=== PATIENT | female | born 1995 | race African-American/Black ===

== ENCOUNTER 2021-08-17 11:44 | Emergency (ER) | payer SELFPAY ==
[2021-08-17 18:39] LABS: SARS-COV-2 RT PCR NEGATIVE (NEGATIVE)
--- NOTE | 2021-08-17 18:50 | ER ---
Nurse's Notes [facility] Name: Ana Yip Age: 25 yrs Sex: Female : 1995 Arrival Date: 08/17/2021 Time: 11:47 Bed Waiting Private MD: Diagnosis: Acute pharyngitis, unspecified Presentation: 08/17 12:38 Chief complaint: Patient states: cough, fever, sore throat x3 days. Coronavirus screen: Vaccine status: Patient reports being unvaccinated. Ebola Screen: Patient denies travel to an Ebola-affected area in the 21 days before illness onset. Initial Sepsis Screen: Does the patient meet any 2 criteria? No. Patient's initial sepsis screen is negative. Does the patient have a suspected source of infection? No. Patient's initial sepsis screen is negative. Risk Assessment: Do you want to hurt yourself or someone else? Patient reports no desire to harm self or others. Onset of symptoms was August 14, 2021. 12:38 Method Of Arrival: Ambulatory 12:38 Acuity: ADEEL 4 Triage Assessment: 12:43 General: Appears in no apparent distress. Behavior is calm, cooperative. hogue Historical: - Allergies: 12:43 No Known Allergies; hogue - Home Meds: 12:43 None [Active]; hogue - PMHx: 12:43 None; hogue - PSHx: 12:43 None; hogue - Immunization history:: Adult Immunizations up to date. - Social history:: Smoking status: Patient reports the use of cigarette tobacco products, smokes one pack cigarettes per day. Assessment: 18:58 Reassessment: pt discharged by ERP. marino Vital Signs: 12:38 BP 132 / 88; Pulse 88; Resp 18; Temp 98.0; Pulse Ox 100% ; Weight 80.74 kg; Height 5 hogue ft. 2 in. (157.48 cm); 12:38 Body Mass Index 32.56 (80.74 kg, 157.48 cm) hogue ED Course: 11:47 Patient arrived in ED. am2 12:43 Triage completed. hogue 12:43 Arm band placed on right wrist. ohgue 13:42 Strep Sent. hogue 13:42 Group A Streptococcus Rapid Sc Sent. hogue 16:39 Gurpreet Rea NP is PHCP. pm1 16:39 Alphonso Hernandez MD is Attending Physician. pm1 18:57 No provider procedures requiring assistance completed. Patient did not have IV access jl7 during this emergency room visit. Administered Medications: No medications were administered Outcome: 18:49 Discharge ordered by . pm1 18:57 Discharged to home ambulatory. jl7 18:57 Condition: stable 18:57 Discharge instructions given to patient, Instructed on discharge instructions, follow up and referral plans. Demonstrated understanding of instructions, follow-up care. 18:58 Patient left the ED. jl7 Signatures: Gurpreet Rea NP DRAFTER ASSISTANT pm1 Katy Chapa RN RN jl7 Casie Sarakr am2 Lisa Ruvalcaba RN RN hogue
--- NOTE | 2021-08-17 18:50 | EDPHYS ---
Physician Documentation [facility] Name: Ana Yip Age: 25 yrs Sex: Female : 1995 Arrival Date: 08/17/2021 Time: 11:47 Bed Waiting Private MD: KAUSHIK Physician Alphonso Hernandez HPI: 08/17 16:42 This 25 yrs old Black Female presents to ER via Ambulatory with complaints of Sore pm1 Throat, Difficulty Swallowing, Fever. 16:42 The patient presents with sore throat. The patient describes throat pain as raw, pm1 scratchy. Onset: The symptoms/episode began/occurred 1 day(s) ago. Severity of symptoms: in the emergency department the symptoms are actually worse. Modifying factors: The symptoms are alleviated by nothing, the symptoms are aggravated by swallowing, Patient's oral intake status: good The patient has had contact with sick co-worker(s), covid, at work. Associated signs and symptoms: Pertinent positives: fever, Pertinent negatives chest pain, cough, diarrhea, shortness of breath, vomiting. The patient has not experienced similar symptoms in the past. The patient has not recently seen a physician. Patient with onset of sore throat yesterday. Patient was exposed to Covid coworkers and is looking for a return to work post lab results. Historical: - Allergies: 12:43 No Known Allergies; hogue - Home Meds: 12:43 None [Active]; hogue - PMHx: 12:43 None; hogue - PSHx: 12:43 None; hogue - Immunization history:: Adult Immunizations up to date. - Social history:: Smoking status: Patient reports the use of cigarette tobacco products, smokes one pack cigarettes per day. ROS: 16:42 Eyes: Negative for injury, pain, redness, and discharge. pm1 16:42 Neck: Negative for injury, pain, and swelling, Cardiovascular: Negative for chest pain, palpitations, and edema, Respiratory: Negative for shortness of breath, cough, wheezing, and pleuritic chest pain, Abdomen/GI: Negative for abdominal pain, nausea, vomiting, diarrhea, and constipation, Back: Negative for injury and pain, MS/Extremity: Negative for injury and deformity, Skin: Negative for injury, rash, and discoloration, Neuro: Negative for headache, weakness, numbness, tingling, and seizure. 16:42 Constitutional: Positive for fever, Negative for poor PO intake. 16:42 ENT: Positive for sore throat, Negative for ear pain. 16:42 All other systems are negative. Exam: 16:42 Constitutional: This is a well developed, well nourished patient who is awake, alert, pm1 and in no acute distress. Head/Face: Normocephalic, atraumatic. 16:42 Back: No spinal tenderness. No costovertebral tenderness. Full range of motion. Skin: Warm, dry with normal turgor. Normal color with no rashes, no lesions, and no evidence of cellulitis. MS/ Extremity: Pulses equal, no cyanosis. Neurovascular intact. Full, normal range of motion. 16:42 ENT: Ear canal(s): no acute changes, TM's: no acute changes, Mouth: no acute changes, Lips: normal, moist, Oral mucosa: normal, pink and intact, moist, Posterior pharynx: Tonsils: bilaterally enlarged, with erythema, no exudate, no ulcerations. 16:42 Neck: Lymph nodes: lymphadenopathy is appreciated, anterior cervical nodes. 16:42 Cardiovascular: Exam negative for acute changes, Rate: normal, Rhythm: regular, Pulses: no pulse deficits are appreciated. 16:42 Respiratory: Exam negative for acute changes, respiratory distress, shortness of breath. 16:42 Abdomen/GI: Inspection: abdomen appears normal, Palpation: abdomen is soft and non-tender, in all quadrants. 16:42 Neuro: Exam negative for acute changes, Orientation: is normal, Mentation: is normal, Motor: is normal, moves all fours. Vital Signs: 12:38 BP 132 / 88; Pulse 88; Resp 18; Temp 98.0; Pulse Ox 100% ; Weight 80.74 kg; Height 5 hogue ft. 2 in. (157.48 cm); 12:38 Body Mass Index 32.56 (80.74 kg, 157.48 cm) hogue MDM: 16:40 Patient medically screened. pm1 16:46 Data reviewed: vital signs. Data interpreted: Pulse oximetry: on room air is 100 %. pm1 Interpretation: normal. 18:48 Counseling: I had a detailed discussion with the patient and/or guardian regarding: the pm1 historical points, exam findings, and any diagnostic results supporting the discharge/admit diagnosis, lab results, the need for outpatient follow up, to return to the emergency department if symptoms worsen or persist or if there are any questions or concerns that arise at home. 08/17 12:44 Order name: Strep hogue 08/17 12:44 Order name: Group A Streptococcus Rapid Sc; Complete Time: 17:02 EDMS 08/17 16:40 Order name: COVID-19/FLU A+B (Document "Date of Onset" if Symptomatic); Complete Time: pm1 18:48 08/17 16:57 Order name: Throat Culture EDMS Administered Medications: No medications were administered Disposition Summary: 08/17/21 18:49 Discharge Ordered Location: Home pm1 Problem: new pm1 Symptoms: have improved pm1 Condition: Stable pm1 Diagnosis - Acute pharyngitis, unspecified pm1 Followup: pm1 - With: Emergency Department - When: As needed - Reason: Worsening of condition Followup: pm1 - With: Private Physician - When: 2 - 3 days - Reason: Recheck today's complaints, Continuance of care, Re-evaluation by your physician Discharge Instructions: - Discharge Summary Sheet pm1 - Pharyngitis pm1 Forms: - Medication Reconciliation Form pm1 - Work release form pm1 - Thank You Letter pm1 - Antibiotic Education pm1 - Prescription Opioid Use pm1 Addendum: 08/19/2021 09:05 Co-signature as Attending Physician, Alphonso Hernandez MD I agree with the assessment and c hogue plan of care. Signatures: Dispatcher [employer] Alphonso Dumont MD MD cha Marinas, Patrick, HOG HANDLER HOG HANDLER pm1 Lisa Ruvalcaba RN [facility]
[2021-08-17 19:02] VITALS: BP 132/88; TEMP 98; O2SAT 100
== END 2021-08-17 18:58 | disposition home or self-care (01) ==
LOC: ER 11:44
DX: J02.9 Acute pharyngitis, unspecified (principal); F17.210 Nicotine dependence, cigarettes, uncomplicated; Z20.822 Contact with and (suspected) exposure to COVID-19
CPT/HCPCS: 0240U; 87070; 87081; 99283

== ENCOUNTER 2024-12-14 11:28 | Emergency (ER) | payer OTHER, SELFPAY ==
--- OUTSIDE RECORDS SUMMARY | 2024-12-14 11:32 | XMS REPORT | Continuity of Care Document ---
Author Name Unknown Address [address] [place] [address] [address] [place] [address] 1 [address] [place] [address] Care Team Providers Care Assistant Speech Language Pathologist Name Role Phone EFREN VICENTE Attending Clinician Unavailable LAURA FLOOD Attending Clinician Unavailable [id number] Attending Clinician Unavailable KALA TIWARI Attending Clinician Unavailable JUWAN MUÑOZ Attending Clinician Dontae SUBRAMANIAN MD Attending Clinician Unavailab le [id number] Attending Clinician Unavailable Payers Payer Name Policy Type Policy Number Effective Date Expirati on Date Source [employer]IL[employer] 87 ADULT DNTL+VSN 9 [id number] 2024 00:00:00 Problems Condition Name Condition Details Condition Category Status Onset Date Resolution Date Last Treatment Date Treating Clinician Comments Source Mild major depression Mild major depression Disease Active 08-22 00:00: 00 Luz Marina Bolden - Externa l Social History Social Habit Start Date Stop Date Quantity Comments Source History of tobacco use Cigarette Smoker Luz Marina rodriguez - External Sexual orientation Amilcar Bolden - External History of Social function 2024-01-14 00:00:00 2024-01-14 00:00:00 Luz Marina Bolden - External Alcoholic beverage intake 2024-01-14 00:00:00 2024-01-14 00:00:00 Lifetime non-drinker (finding) Luz Marina Bolden - External Alcohol intake 2023-08-22 00:00:00 2023-08-22 00:00:00 Lifetime non-drinker (finding) Luz Marina Seybold - External Sex [birth year] at 1995 00:00:00 1995 00:00:00 Luz Marina Rosas Smoking Status Start Date Stop Date Source Ex-smoker 2023-08-22 00:00:00 2023-08-22 00:00:00 Amilcar Bolden - External Medications Ordered Medication Name Filled Medication Name Start Date Stop Date Current Medication? Ordering Clinician Indication Dosage Frequency Signature (SIG) Comments Components Source Ibuprofen (MOTRIN) 600 MG oral Tablet 10-31 00:00: 00 11-16 04:59 :00 No [id number] 600mg Q.25D Take 1 tablet (600 mg total) by mouth every 6 hours as needed for pain for up to 15 days. Luz Marina tejada Acetaminoph en (TYLENOL 8 HOUR OR) 08-22 10:06: 23 Yes Take by mouth. Luz Marina Sanchez l Aspirin 325 MG oral Tablet 08-22 10:06: 23 Yes 325mg Take 1 tablet (325 mg total) by mouth daily. Luz Marina Sanchez l Immunizations Ordered Immunization Name Filled Immunization Name Date Status Comments Source DTP- Diphtheria,Tetanus,Pe rtussis Unknown Completed Luz Marina Bolden - External Hepatitis B, Adolescent Or Pediatric Unknown Completed Luz Marina Bolden - External Tetanus Toxoid/HIB Unknown Completed Amilcar Bolden - External MMR- Measles, Mumps, Rubella Unknown Completed Luz Marina Bolden - External Polio Vaccine Unknown Completed Luz Marina Bolden - External Varicella Vaccine Unknown Completed French Bolden - External DTP- Diphtheria,Tetanus,Pe rtussis Unknown Completed Luz Marina Bolden - External Hepatitis B, Adolescent Or Pediatric Unknown Completed Luz Marina Bolden - External Tetanus Toxoid/HIB Unknown Completed Amilcar Bolden - External MMR- Measles, Mumps, Rubella Unknown Completed Luz Marina Bolden - External Polio Vaccine Unknown Completed Luz Marina Bolden - External Varicella Vaccine Unknown Completed French Bolden - External Vital Signs Vital Name Observation Time Observation Value Comments S isaiah Systolic blood pressure 2024-01-14 16:14:00 108 mm[Hg] Luz Marina Dillard ld - External Diastolic blood pressure 2024-01-14 16:14:00 70 mm[Hg] Luz Marina robert ld - External Heart rate 2024-01-14 16:14:00 86 /min Marcelle viveros Seybold - External Body weight 2024-01-14 16:14:00 89.359 kg Rupa galicia Seybold - External BMI 2024-01-14 16:14:00 34.90 kg/m2 Rupa galicia Seybold - External Encounters Start Date/Time End Date/Time Encounter Type Admission Type Attending [facility] Care Department Encounter ID Source 2024-11-04 00:00:00 2024-11-04 00:00:00 Outpatient JULES EFREN LUZ MARINA ASENCIO [id number] [facility] 10:30:00 2024-03-02 10:30:00 Outpatient LUZ MARINA ASENCIO [id number] Luz Marina [facility] 2024-02-10 15:30:00 2024-02-10 15:30:00 Outpatient LAURA FLOOD [id number] [facility] 2024-01-14 13:30:00 2024-01-14 13:30:00 Outpatient [id number] LUZ MARINA ASENCIO [id number] [facility] 2024-01-14 11:30:00 2024-01-14 11:30:00 Outpatient KALA TIWARI [id number] [facility] 2024-01-10 13:30:00 2024-01-10 13:30:00 Outpatient LAURA FLOOD [id number] [facility] 2023-11-20 16:00:00 2023-11-20 16:00:00 Outpatient LAURA FLOOD [id number] [facility] 2023-11-07 10:00:00 2023-11-07 10:00:00 Outpatient KALA TIWARI [id number] [facility] 2023-11-01 15:45:00 2023-11-01 15:45:00 Outpatient JUWAN MUÑOZ [id number] [facility] 2023-11-01 00:00:00 2023-11-01 00:00:00 Outpatient KALA TIWARI [id number] Luz Marina Bolden 2023-10-22 15:30:00 2023-10-22 15:30:00 Outpatient LAURA FLOOD [id number] Luz Marina Bolden 2023-10-16 00:00:00 2023-10-16 00:00:00 Outpatient MD LUZ MARINA SHARMA [id number] Luz Marina Bolden 2023-09-25 14:30:00 2023-09-25 14:30:00 Outpatient LAURA FLOOD [id number] uLz Marina Bolden 2023-08-29 00:00:00 2023-08-29 00:00:00 Outpatient MD LUZ MARINA SHARMA [id number] Luz Marina Bolden 2023-08-26 00:00:00 2023-08-26 00:00:00 Outpatient MD LUZ MARINA SHARMA [id number] [facility] 2023-08-22 10:45:00 2023-08-22 10:45:00 Outpatient [id number] LUZ MARINA ASENCIO [id number] [facility] 2023-08-22 10:00:00 2023-08-22 10:00:00 Outpatient LAURA FLOOD [id number] Luz Marinajeaneth Bolden Notes Date/Time Note Provider Source 2024-01-14 11:15:02 Chief Complaint Patient presents with Well Woman Exam Chanda Abebe [facility] 2023-11-01 15:40:43 Chief Complaint Patient presents with OTHER cycle Arnie Hare [facility]
--- NOTE | 2024-12-14 12:29 | ER ---
Nurse's Notes [facility] Name: Ana Yip Age: 29 yrs Sex: Female : 1995 Arrival Date: 12/14/2024 Time: 11:28 Bed 9 Private MD: Diagnosis: Pain in throat Presentation: 12/14 11:35 Chief complaint: Patient states: Sore throat X 2 days. Pt reports losing voice ld1 yesterday. Pain to left side of face. Coronavirus screen: At this time, the client does not indicate any symptoms associated with coronavirus-19. Ebola Screen: No symptoms or risks identified at this time. Initial Sepsis Screen: Does the patient meet any 2 criteria? No. Patient's initial sepsis screen is negative. Does the patient have a suspected source of infection? No. Patient's initial sepsis screen is negative. Risk Assessment: Do you want to hurt yourself or someone else? Patient reports no desire to harm self or others. Onset of symptoms was December 14, 2024. 11:35 Method Of Arrival: Ambulatory ld1 11:35 Acuity: ADEEL 4 ld1 Triage Assessment: 11:36 General: Appears in no apparent distress. comfortable, Behavior is calm, cooperative, ld1 appropriate for age. Pain: Denies pain. EENT: Throat is pink Reports throat pain when swallowing. Neuro: Level of Consciousness is awake, alert, obeys commands, Oriented to person, place, time, situation. Cardiovascular: Capillary refill < 3 seconds Patient's skin is warm and dry. Respiratory: Airway is patent Respiratory effort is even, unlabored. GI: Abdomen is round non-distended. : No signs and/or symptoms were reported regarding the genitourinary system. Derm: No signs and/or symptoms reported regarding the dermatologic system. Musculoskeletal: No signs and/or symptoms reported regarding the musculoskeletal system. Historical: - Allergies: 11:36 No Known Allergies; ld1 - Home Meds: 11:36 None [Active]; ld1 - PMHx: 11:36 None; ld1 - PSHx: 11:36 None; ld1 - Immunization history:: Adult Immunizations up to date. - Infectious Disease History:: Denies. - Social history:: Smoking status: Patient reports the use of cigarette tobacco products, smokes one-half pack cigarettes per day, Reported history of juuling and/or vaping. Screenin:00 [facility] ED Fall Risk Assessment (Adult) History of falling in the last 3 months, iw including since admission No falls in past 3 months (0 pts) Confusion or Disorientation No (0 pts) Intoxicated or Sedated No (0 pts) Impaired Gait No (0 pts) Mobility Assist Device Used No (0 pt) Altered Elimination No (0 pt) Score/Fall Risk Level 0 - 2 = Low Risk Oriented to surroundings, Maintained a safe environment. Abuse screen: Denies threats or abuse. Denies injuries from another. Nutritional screening: No deficits noted. Tuberculosis screening: No symptoms or risk factors identified. Assessment: 13:00 General: Appears in no apparent distress. Behavior is calm, cooperative. Neuro: Level iw of Consciousness is awake, alert, obeys commands, Oriented to person, place, time, situation, Moves all extremities. Full function. Respiratory: Respiratory effort is even, unlabored, Derm: Skin is intact, is healthy with good turgor. Musculoskeletal: Range of motion: intact in all extremities. Vital Signs: 11:35 BP 138 / 80; Pulse 95; Resp 18; Temp 97.6(TE); Pulse Ox 100% on R/A; Weight 81.65 kg; ld1 Height 5 ft. 2 in. ; Pain 0/10; 11:35 Body Mass Index 32.92 (81.65 kg, 157.48 cm) ld1 11:35 Pain Scale: Adult ld1 ED Course: 11:31 Patient arrived in ED. mr 11:32 Don Sibley DO is Attending Physician. ms3 11:36 Triage completed. ld1 11:36 Arm band placed on right wrist. ld1 11:43 Group A Streptococcus Rapid Sent. iw 12:55 Cele Dan, RN is Primary Nurse. iw 13:00 Patient has correct armband on for positive identification. iw 13:20 No provider procedures requiring assistance completed. Patient did not have IV access iw during this emergency room visit. Administered Medications: 13:21 Drug: Dexamethasone IM 10 mg IM once Route: IM; Site: right ventrogluteal; iw 13:31 Follow up: Response: No adverse reaction iw Medication: 13:00 VIS not applicable for this client. iw Outcome: 12:28 Discharge ordered by . ms3 13:21 Patient left the ED. iw 13:21 Discharged to home ambulatory, iw 13:21 Condition: good 13:21 Discharge instructions given to patient, Instructed on discharge instructions, follow up and referral plans. Demonstrated understanding of instructions, follow-up care, Signatures: Suni Thomas, Oseas Reg mr Cele Dan, RN RN iw Don Sibley DO DO ms3 Mary Sibley RN RN ld1
--- NOTE | 2024-12-14 12:29 | EDPHYS ---
Physician Documentation [facility] Name: Ana Yip Age: 29 yrs Sex: Female : 1995 Arrival Date: 12/14/2024 Time: 11:28 Bed 9 Private MD: ED Physician Don Sibley HPI: 12/15 09:16 This 29 yrs old Black Female presents to ER via Ambulatory with complaints of Sore ms3 Throat. 09:16 29-year-old female with no past medical history presents to the emergency department ms3 for sore throat x 2 days. Patient notes earlier in the week she had lost her voice. Patient denies any alleviating or inciting factors. Historical: - Allergies: 12/14 11:36 No Known Allergies; ld1 - Home Meds: 11:36 None [Active]; ld1 - PMHx: 11:36 None; ld1 - PSHx: 11:36 None; ld1 - Immunization history:: Adult Immunizations up to date. - Infectious Disease History:: Denies. - Social history:: Smoking status: Patient reports the use of cigarette tobacco products, smokes one-half pack cigarettes per day, Reported history of juuling and/or vaping. ROS: 12/15 09:16 Constitutional: Negative for fever, and chills. Cardiovascular: Negative for chest ms3 pain, and palpitations. Respiratory: Negative for shortness of breath, cough, wheezing, and pleuritic chest pain, Abdomen/GI: Negative for abdominal pain, nausea, vomiting, diarrhea, and constipation, ENT: Positive for sore throat, Exam: 09:16 Constitutional: This is a well developed, well nourished patient who is awake, alert, ms3 and in no acute distress. Chest/axilla: Normal chest wall appearance and motion. Nontender with no deformity. Cardiovascular: Regular rate and rhythm with a normal S1 and S2. No gallops, murmurs, or rubs. Normal PMI, no JVD. No pulse deficits. Respiratory: Lungs have equal breath sounds bilaterally, clear to auscultation and percussion. No rales, rhonchi or wheezes noted. No increased work of breathing, no retractions or nasal flaring. Abdomen/GI: Soft, non-tender, with normal bowel sounds. No distension or tympany. No guarding or rebound. No evidence of tenderness throughout. 09:16 Skin: Warm, dry with normal turgor. Normal color with no rashes, no lesions, and no evidence of cellulitis. 09:16 ENT: Posterior pharynx: Tonsils: bilaterally enlarged, with erythema, Uvula: normal, midline, non-edematous, no erythema, erythema, that is mild, Vital Signs: 12/14 11:35 BP 138 / 80; Pulse 95; Resp 18; Temp 97.6(TE); Pulse Ox 100% on R/A; Weight 81.65 kg; ld1 Height 5 ft. 2 in. ; Pain 0/10; 11:35 Body Mass Index 32.92 (81.65 kg, 157.48 cm) ld1 11:35 Pain Scale: Adult ld1 MDM: 11:34 Medical Screening Exam initiated ms3 12/15 09:16 Differential diagnosis: group A strep tonsillitis, upper respiratory infection, viral ms3 syndrome. Data reviewed: vital signs, nurses notes, lab test result(s), and as a result, I will discharge patient. I considered the following discharge prescriptions or medication management in the emergency department Medications were administered in the Emergency Department. See MAR. Counseling: I had a detailed discussion with the patient and/or guardian regarding the historical points, exam findings, and any diagnostic results supporting the discharge/admit diagnosis, lab results, the need for outpatient follow up, to return to the emergency department if symptoms worsen or persist or if there are any questions or concerns that arise at home. Special discussion: I discussed with the patient/guardian in detail that at this point there is no indication for admission to the hospital. It is understood, however, that if the symptoms persist or worsen the patient needs to return immediately for re-evaluation. ED course: Discussed negative strep results with patient. Patient was given 10 mg IM dexamethasone in the emergency department. Patient to follow-up with her primary care physician in 2 to 3 days. Patient understands and agrees with plan. All questions were answered. On reevaluation patient was alert and oriented x 4, in no apparent distress, nontoxic-appearing, speaking full sentences, tolerating p.o. No signs of retropharyngeal or peritonsillar abscess were present.. 12/14 11:39 Order name: Group A Streptococcus Rapid; Complete Time: 12:13 ld1 12/14 12:15 Order name: Throat Culture EDMS Administered Medications: 12/14 13:21 Drug: Dexamethasone IM 10 mg IM once Route: IM; Site: right ventrogluteal; iw 13:31 Follow up: Response: No adverse reaction iw Disposition Summary: 12/14/24 12:28 Discharge Ordered Notes: Location: Home ms3 Condition: Stable ms3 Diagnosis - Pain in throat ms3 Discharge Instructions: - Discharge Summary Sheet ms3 - Sore Throat, [id number] ms3 Forms: - Work release form iw - Medication Reconciliation Form ms3 - Antibiotic Education ms3 - Prescription Opioid Use ms3 - Patient Portal Instructions ms3 - Leadership Thank You Letter ms3 Signatures: Dispatcher [employer] Cele Cuellar RN RN iw Don Sibley DO DO ms3 Mary Sibley RN RN ld1
[2024-12-14] MEDS ORDERED: dexAMETHasone 10 MG/ML VIAL ONE (13:01)
[2024-12-15 15:31] VITALS: BP 138/80; TEMP 97.6; O2SAT 100
== END 2024-12-14 13:21 | disposition home or self-care (01) ==
LOC: ER 11:28
DX: R07.0 Pain in throat (principal); F17.210 Nicotine dependence, cigarettes, uncomplicated
CPT/HCPCS: 36415; 87070; 96372; 99284; J1100